=== PATIENT | female | born 1990 | race Caucasian/White ===

== ENCOUNTER 2023-11-26 02:46 | Emergency (ER) | payer SELFPAY ==
[2023-11-26 02:50] VITALS: BP 114/75; PULSE 109; RESP 16; O2SAT 100
[2023-11-26 02:55] VITALS: TEMP 36.6
--- NOTE | 2023-11-26 03:57 | ED.GENADULT ---
HPI - General Adult General Chief complaint: Dental/Oral Stated complaint: dental pain Time Seen by Provider: 11/26/23 03:07 History of Present Illness HPI narrative: This is a 33-year-old female poor dentition presenting for dental pain. Pain started 4 hours prior to arrival. She has been taking Motrin and Tylenol with some. She is requesting antibiotics for possible dental infection. Related Data Allergies Allergy/AdvReac Type Severity Reaction Status Date / Time Penicillins Allergy Unknown Verified 12/07/15 17:43 Exam Narrative: APPEARANCE: No apparent distress. Head: Poor dentition, no evidence of abscess EYES: EOMI, NOSE: Atraumatic NECK: Trachea midline RESPIRATORY: No increased rate of breathing CARDIOVASCULAR: RRR, ABDOMINAL: Non-distended MUSCULOSKELETAl: No obvious deformities NEURO: Alert. Moving 4/4 extremities SKIN:: Warm, dry. Normal color PSYCHIATRIC: Normal affect Course Vital Signs Vital signs: Vital Signs Pulse Rate 109 H 11/26/23 02:50 Respiratory Rate 16 11/26/23 02:50 Blood Pressure 114/75 11/26/23 02:50 Pulse Oximetry 100 11/26/23 02:50 Oxygen Delivery Room Air 11/26/23 02:50 Temperature 97.8 F 11/26/23 02:55 Pulse Rate 109 H 11/26/23 02:50 Respiratory Rate 16 11/26/23 02:50 Blood Pressure 114/75 11/26/23 02:50 Pulse Oximetry 100 11/26/23 02:50 Oxygen Delivery Room Air 11/26/23 02:50 Medical Decision Making MDM Narrative Medical decision making narrative: -Course: 33-year-old female presenting with dental pain. She is requesting course of antibiotics. These were provided. Patient's Motrin Tylenol home. Patient discharged with dental follow-up. -Interventions: Clindamycin 450mg -Shared decision making / Disposition:d/c -RX Clindamycin Vital Signs Vital Signs: Vital Signs Pulse Rate 109 H 11/26/23 02:50 Respiratory Rate 16 11/26/23 02:50 Blood Pressure 114/75 11/26/23 02:50 Pulse Oximetry 100 11/26/23 02:50 Oxygen Delivery Room Air 11/26/23 02:50 Temperature 97.8 F 11/26/23 02:55 Pulse Rate 109 H 11/26/23 02:50 Respiratory Rate 16 11/26/23 02:50 Blood Pressure 114/75 11/26/23 02:50 Pulse Oximetry 100 11/26/23 02:50 Oxygen Delivery Room Air 11/26/23 02:50 Discharge Plan Discharge Clinical Impression: Toothache Patient Disposition: Home, Self-Care Condition: Stable Instructions: Antibiotic Form, Toothache (ED) Additional Instructions: Take clindamycin as directed. Use Motrin Tylenol for pain. Follow up with a dentist. Prescriptions: New clindamycin HCl 150 mg capsule 450 mg PO Q6H 10 Days Qty: 120 0RF Follow-up/Referrals: UNKNOWN,DOCTOR [Primary Care Provider] - Stand Alone Forms: Work/School Release IP
[2023-11-26] MEDS: CLINDAMYCIN HCL 150 MG CAP 450 MG PO (04:05)
== END 2023-11-26 04:08 | disposition home or self-care (01) ==
PROVIDERS: Emergency Provider Emergency Medicine
DX: K08.89 Other specified disorders of teeth and supporting structures (principal)
CPT/HCPCS: 99283; A9270